=== PATIENT | male | born 1990 | race Caucasian/White ===

== ENCOUNTER 2018-06-11 06:26 | Day surgery (SDC) | payer MEDICAID ==
[2018-06-11] MEDS ORDERED: Lactated Ringers 1,000 ML IV SCH (07:00)
[2018-06-11] MEDS ORDERED: Propofol 200 MG/20 ML SDV ONE (07:21)
[2018-06-11] MEDS ORDERED: fentaNYL 100 MCG/2 ML SDV ONE (07:21)
[2018-06-11] MEDS ORDERED: Midazolam 1 MG/ML 2 ML SDV ONE (07:22)
--- NOTE | 2018-06-11 09:10 | OR ---
DATE OF PROCEDURE: 06/11/2018 PREOPERATIVE DIAGNOSIS: Blood in stool. POSTOPERATIVE DIAGNOSES: Blood in stool, colitis. PROCEDURE: Colonoscopy to the cecum with random colon biopsies. SURGEON: Vaibhav Mckeon MD ANESTHESIA: IV anesthesia with monitored anesthesia care. INDICATION: This 27-year-old white male has noticed some blood in his stool. He had a positive FIT test. He was referred for a colonoscopy because of this. I counseled him for the procedure, including risks and alternatives, and he gave his informed consent to proceed. DESCRIPTION OF PROCEDURE: The patient was placed in the left lateral decubitus position. IV anesthesia was administered by the Anesthesia Service. Time-out was held. A rectal exam was performed, which was unremarkable. The flexible video Olympus colonoscope was introduced through his anus, up his rectum and out his colon all the way to the cecum. The colon throughout appeared erythematous consistent with colitis. Some areas were more intense than others. The scope was then slowly withdrawn, examining the mucosa throughout. We obtained random colon biopsies. No other changes, other than the erythema, were noted. The scope was retroflexed in the rectum with the distal rectum appearing unremarkable. The scope was straightened and removed. He tolerated the procedure well. Vaibhav Mckeon MD /[id number] MTDD
== END 2018-06-11 09:35 | disposition home or self-care (01) ==
LOC: JP.SDS 06:26
PROVIDERS: ATTEND Surgery
DX: K52.9 Noninfective gastroenteritis and colitis, unspecified (principal); K63.0 Abscess of intestine
CPT/HCPCS: 45380; 88305; J2250; J2704; J3010; J7120

== ENCOUNTER 2022-12-01 19:44 | Emergency (ER) | payer MEDICAID ==
[2022-12-01] MEDS ORDERED: Sodium Chloride 0.9% 1,000 ML IV ONE (21:19)
[2022-12-01 21:31] LABS: BASOPHILS ABSOLUTE AUTO 0.04 K/uL (0.00-0.10); BASOPHILS PERCENT AUTO 0.3 % (0.1-1.3); HEMATOCRIT 41.2 % (38.4-49.7); HEMOGLOBIN 14.1 g/dL (12.9-16.9); IMMATURE GRAN ABSOLUTE AUTO 0.08 K/uL (0.00-0.23); IMMATURE GRAN PERCENT AUTO 0.7 % (0.0-0.7); LYMPHOCYTES ABSOLUTE AUTO 0.65 K/uL (0.8-3.3); LYMPHOCYTES PERCENT AUTO 5.6 % (11.4-47.7); MEAN CORPUSCULAR HEMOGLOBIN 29.3 pg (31.6-35.5); MEAN CORPUSCULAR HGB CONC 34.2 g/dL (31.6-35.5); MEAN CORPUSCULAR VOLUME 85.5 fL (81.4-99.0); MONOCYTES ABSOLUTE AUTO 1.25 K/uL (0.20-0.90); MONOCYTES PERCENT AUTO 10.7 % (3.3-12.6); NEUTROPHILS ABSOLUTE AUTO 9.68 K/uL (1.0-7.6); NEUTROPHILS PERCENT AUTO 82.7 % (40.0-78.1); PLATELET COUNT,PLT 335 K/uL (130-375); RED BLOOD CELL COUNT 4.82 M/uL (4.14-5.76); WHITE BLOOD CELL COUNT,WBC 11.7 K/uL (3.2-11.0)
[2022-12-01] MEDS ORDERED: Ondansetron 4 MG/2 ML SDV IVPUSH ONE (21:35)
[2022-12-01 21:51] LABS: A/G RATIO 0.6 (1.2-2.2); ALANINE AMINOTRANSFERASE,ALT 8 U/L (12-78); ALBUMIN 2.8 g/dL (3.4-5.0); ALKALINE PHOSPHATASE 67 U/L (46-116); ASPARTATE AMNIOTRANSFERASE,AST 10 U/L (15-37); BILIRUBIN TOTAL 0.6 mg/dL (0.2-1.0); BLOOD UREA NITROGEN,BUN 17 mg/dL (7-18); C-REACTIVE PROTEIN 9.15 mg/dL (0.0-0.3); CALCIUM 8.8 mg/dL (8.5-10.1); CARBON DIOXIDE,CO2 29 mmol/L (21-32); CHLORIDE,CL 96 mmol/L (100-108); CREATININE 1.1 mg/dL (0.8-1.3); EST CRCL DRUG DOSING (CG) 89.04 mL/min; ESTIMATED GFR 92 mL/min (>60); GLUCOSE RANDOM 99 mg/dL (74-106); POTASSIUM,K 4.1 mmol/L (3.6-5.2); PROTEIN TOTAL,TP 7.2 g/dL (6.4-8.2); SODIUM,NA 134 mmol/L (140-148)
[2022-12-01 21:52] LABS: ANION GAP 13.1 mmol/L (5.0-14.0)
[2022-12-01] MEDS ORDERED: Sodium Chloride 0.9% 50 ML IV SCH (22:15)
[2022-12-01] MEDS ORDERED: Iopamidol 612 MG/ML 100 ML Bottle IV SCH (22:15)
== END 2022-12-01 23:45 | disposition home or self-care (01) ==
LOC: JP.ED 19:44
DX: K51.90 Ulcerative colitis, unspecified, without complications (principal)
CPT/HCPCS: 36415; 74177; 80053; 85025; 86140; 96361; 96374; 99285; J2405; J3490; J7030; Q9967; 99284